=== PATIENT | male | born 1995 | race Caucasian/White ===

== ENCOUNTER 2016-07-18 03:34 | Emergency (ER) | payer OTHER ==
[~2016-07-18] VITALS: Ht 193 cm; Wt 100.1 kg
[2016-07-18 03:35] VITALS: TEMP 36.6; O2SAT 96; Ht 193 cm; Wt 100.1 kg
[2016-07-18] MEDS ORDERED: METH30CA PO (03:49)
--- NOTE | 2016-07-18 04:08 | EMERGENCY ROOM VISIT NOTE ---
History Report prepared by Shanice: Rhett Hull Under the Supervision of: Dr. Domitila Michael D.O. First contact with patient: 03:44 Chief Complaint: SEIZURE Stated Complaint: SEIZURE Nursing Triage Summary: pt arrives ALS from home. pt has hx of seizures, last on 5 years ago. pt has not taken Tegretol for approx 1.5 years. pt woke girlfriend from sleep tonight having a seizure. per EMS pt was postictal upon their arrival. pt A/O x4. pt reports headache 05/29. tonight pt's parents came for his birthday and he had 1 beer at supper. pt's mom made him take 1 Tegretol 200mg tonight before leaving. 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 The patient was diagnosed with benign rolandic seizure disorder in 2011. He was placed on Tegretol, which he stopped taking a year and a half ago because he was getting clear EEG's, with consult from his neurologist. His mother is in town due to the patient's 21st birthday. Apparently, she made him take a pill today, and when he did, he had this seizure. His girlfriend was lying in bed next to him when he began to seize for about 30 seconds. He was unresponsive and unconscious until EMS arrived. He was lying on his back and asleep when this occurred. He states that he was eating normally today. He did note that he had been taking increased doses of his ADHD medication secondary to exams this week. He took 60 mg Wednesday and . He normally does not take that much. He has rhinorrhea and is tired. He denies any abdominal pain or fevers. 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 A total of 10 systems reviewed and were otherwise negative. Past Medical & Surgical Medical Problems: (1) ADHD (attention deficit hyperactivity disorder) (2) Benign rolandic epilepsy Family History Patient reports no known family medical history. Social History Smoking Status: Never Smoker Alcohol Use: occasionally Drug Use: none Marital Status: single Occupation Status: [employer] student Current/Historical Medications Scheduled Methylphenidate Hcl (Metadate Cd), 30 MG PO QAM Allergies Coded Allergies: No Known Allergies (Unverified , 07/18/16) Physical Exam Vital Signs Date Time Temp Pulse Resp B/P Pulse Ox O2 Delivery O2 Flow Rate FiO2 07/18/16 04:58 59 22 126/67 97 Room Air 07/18/16 04:00 80 13 146/88 97 Room Air 07/18/16 03:40 84 07/18/16 03:35 96 Room Air 07/18/16 03:35 36.6 78 14 136/89 96 Room Air Physical Exam HEENT: Head - normocephalic and atraumatic. Pupils are equal, round, and reactive to light. Extraocular eye muscles are intact and sclera are anicteric. Ears - bilaterally patent canals with noninjected tympanic membranes and no evidence of hemotympanum. Nose - moist nasal mucosa without discharge. Mouth - moist buccal mucosa. Oropharynx is nonerythematous and there is no tonsillar exudate or edema noted. Neck: Supple; no JVD, nuchal rigidity, cervical lymphadenopathy. Heart: Regular rate and rhythm. There is a normal S1 and S2 with no murmurs, clicks, or gallops appreciated. Lungs: Clear to auscultation bilaterally with no wheezes, rales, or rhonchi. Abdomen: Soft, completely nontender, nondistended, with good bowel sounds. There are no palpable pulsatile masses or hepatosplenomegaly. There is no guarding, rigidity, or rebound noted. Extremities: No evidence of cyanosis, clubbing, or edema. There are easily palpable peripheral pulses. Neuro:The patient is awake and alert, oriented to day, time, and place. Muscle strength is 5/5 in all 4 extremities. The patient has equal physics technical officer strength and equal pedal push and pull. There are no cerebellar signs. Medical Decision & Procedures Laboratory Results 07/18/16 03:20 07/18/16 03:20 Test 07/18/16 03:20 07/18/16 04:05 Red Blood Count 5.62 M/uL (4.7-6.1) Mean Corpuscular Volume 82.6 fL (80-100) Mean Corpuscular Hemoglobin 29.7 pg (25-34) Mean Corpuscular Hemoglobin Concent 36.0 g/dl (32-36) RDW Standard Deviation 39.5 fL (36.4-46.3) RDW Coefficient of Variation 13.2 % (11.5-14.5) Mean Platelet Volume 11.3 fL (7.4-10.4) Anion Gap 11.0 mmol/L (3-11) Est Creatinine Clear Calc Drug Dose 110.3 ml/min Estimated GFR () 90.4 Estimated GFR (Non- 78.0 BUN/Creatinine Ratio 16.0 (10-20) Calcium Level 9.8 mg/dl (8.5-10.1) Total Bilirubin 0.8 mg/dl (0.2-1) Direct Bilirubin 0.2 mg/dl (0-0.2) Aspartate Amino Transf (AST/SGOT) 29 U/L (15-37) Alanine Aminotransferase (ALT/SGPT) 51 U/L (12-78) Alkaline Phosphatase 90 U/L (45-117) Total Protein 8.9 gm/dl (6.4-8.2) Albumin 4.9 gm/dl (3.4-5.0) Ethyl Alcohol mg/dL < 3.0 mg/dl (0-3) Laboratory results per my review. Medications Administered Medications (Trade) Dose Ordered Sig/Sara Route Start Time Stop Time Status Last Admin Dose Admin Sodium Chloride (Nss 1000ml) 1,000 ml @ 999 mls/hr Q1H1M STAT IV 07/18/16 04:45 07/18/16 05:45 DC 07/18/16 04:45 999 MLS/HR Procedure Sodium Chloride 1000 ml @ 999 mls/hr IV I encouraged the patient to take another 200 mg dose of Tegretol. ED Course 0344: Past medical records reviewed. The patient was evaluated in room B7. A complete history and physical exam was performed. Seizure precautions were taken. Laboratory studies were drawn as above. 0425: At this time, I filled out the Department of transportation paperwork for the patient. 0445: Ordered Sodium Chloride 1000 ml @ 999 mls/hr IV. 0453: The patient's mother is here at this time. I suggested that he take a second dose of Tegretol here in the emergency department. 0502: I spoke with the patient's mother at this time. I asked her why she told her son to take one of his pills if he has been off of them for some time now. She said that he did not seem "right at times", and that he was staring off into space. 0514: Upon reevaluation, the patient is resting. I discussed findings and results with him. He verbalized agreement of the treatment plan. He was discharged home. Medical Decision The patient is a 21 year old male who presents to the ED with a seizure. Differential diagnosis includes grand mal seizure, post ictal state, dehydration , and alcohol intoxication. Laboratory Results: Alcohol less than 3, LFTs are normal, BUN is 21, creatinine of 1.3, glucose of 99, white blood cell count of 13.6, and stable H&H. The patient has a history of seizure disorder. He has been off of his anticonvulsant for the past 18 months. The patient just celebrated his 21st birthday with significant alcohol intake and vomiting. It seems that he most likely became dehydrated. Unfortunately, the patient suffered a seizure tonight. I've encouraged the patient and his mom to discuss the situation with his neurologist in [place] to determine what dose of Tegretol he should restart. I' ve asked him not to be alone for the next 4-5 days in case he were to have another seizure. He was told not to drive until cleared by his neurologist. If he were to have another seizure, he was to return here to the ER. Impression Primary Impression: Seizure Additional Impression: Dehydration Scribe Attestation The scribe's documentation has been prepared under my direction and personally reviewed by me in its entirety. I confirm that the note above accurately reflects all work, treatment, procedures, and medical decision making performed by me. Departure Information Dispostion Home / Self-Care Referrals No Doctor, Assigned Forms HOME CARE DOCUMENTATION FORM, IMPORTANT VISIT INFORMATION Patient Instructions Dehydration, ED Seizure Recurrent, My [facility] Additional Instructions Rest Take plenty of clear liquids Take Tegretol as directed by your Neurologist in [place] No driving. You must not be alone over the next 4-5 days Problem Qualifiers
[2016-07-18 04:15] LABS: HEMATOCRIT 46.4 % (42-52); MEAN CELL VOLUME 82.6 fL (80-100); MEAN CORPUSCULAR HEMOGLOBIN 29.7 pg (25-34); MEAN PLATELET VOLUME 11.3 fL (7.4-10.4); PLATELET COUNT 304 K/uL (130-400); RED BLOOD COUNT 5.62 M/uL (4.7-6.1); WHITE BLOOD COUNT 13.63 K/uL (4.8-10.8)
[2016-07-18 04:37] LABS: CALCIUM 9.8 mg/dl (8.5-10.1); CREATININE 1.3 mg/dl (0.60-1.40)
[2016-07-18] MEDS ORDERED: SODIUM CHLORIDE 0.9% 1000ML 1,000 ML IV STA (04:45)
[2016-07-18 04:58] VITALS: BP 126/67; PULSE 59; O2SAT 97
== END 2016-07-18 05:30 | disposition home or self-care (01) ==
LOC: C.EDB 03:36
DX: G40.802 Other epilepsy, not intractable, without status epilepticus (principal); E86.0 Dehydration; F90.9 Attention-deficit hyperactivity disorder, unspecified type; Z79.899 Other long term (current) drug therapy